=== PATIENT | female | born 1970 | race American Indian/Alaskan Native ===

== ENCOUNTER 2019-12-27 16:24 | Emergency (ER) | payer MEDICAID ==
[2019-12-27] MEDS ORDERED: HYDROcodone/ACETAMINOPHEN 5-325 MG TAB PO ONE (19:59)
--- NOTE | 2019-12-27 20:42 | Emergency Department Report ---
ED Lower Extremity HPI - General Chief Complaint: Extremity Problem,Nontraumatic Stated Complaint: RIGHT LEG PAIN, HIP PAIN, Time Seen by Provider: 12/27/19 19:58 Source: patient Mode of arrival: Ambulatory Limitations: No Limitations - History of Present Illness Initial Comments: Ms. Kelly is a 49-year-old -[place] female who presents for right hip pain x2 weeks. States she slipped and fell at home and has been having right hip aching since. Pain is described at 5/10 aching. Pain is exacerbated by prolonged walking ,standing, bending, and twisting. Pain is relieved by offloading and rest. Patient has history of chronic back pain she usually takes NSAIDs for same. She states she is out of NSAIDs at this time and cannot see [facility] doctor until next week. pt is noted ambulatory with steady gait. MD Complaint: hip injury Onset/Timin -: week(s) Injury: Pelvis: Right Type of Injury: blunt Place: home Severity: moderate Severity scale (0 -10): 4 Improves With: NSAID, rest Worsens With: weight bearing, movement, palpation Context: fall Associated Symptoms: ambulatory. denies: numbness, tingling - Related Data Previous Rx's Medication Instructions Recorded Last Taken Type Acetaminophen/Codeine [Tylenol 1 tab PO Q6H PRN #12 tab 12/27/19 Unknown Rx /Codeine # 3 tab] Menthol/Camphor [[place] 1 applicatio TP QID PRN #1 tube 12/27/19 Unknown Rx Ointment] Naproxen 500 mg PO BID PRN #30 tablet 12/27/19 Unknown Rx Allergies Allergy/AdvReac Type Severity Reaction Status Date / Time No Known Allergies Allergy Unverified 12/27/19 16:29 ED Review of Systems ROS: Stated complaint: RIGHT LEG PAIN, HIP PAIN, Other details as noted in HPI Constitutional: denies: chills, fever Eyes: denies: eye pain, eye discharge, vision change ENT: denies: ear pain, throat pain Respiratory: no symptoms reported. denies: shortness of breath, wheezing Cardiovascular: denies: chest pain, palpitations Endocrine: no symptoms reported Gastrointestinal: denies: abdominal pain, nausea, vomiting, diarrhea Genitourinary: denies: urgency, dysuria, discharge Musculoskeletal: arthralgia (low back , right hip ), myalgia. denies: back pain, joint swelling Skin: denies: rash, lesions Neurological: denies: headache, weakness, paresthesias Psychiatric: denies: anxiety, depression Hematological/Lymphatic: denies: easy bleeding, easy bruising ED Past Medical Hx - Past Medical History Previous Medical History?: Yes Hx Arthritis: Yes Additional medical history: Hiatal hernia - Medications Home Medications: Home Medications Medication Instructions Recorded Confirmed Last Taken Type Acetaminophen/Codeine [Tylenol 1 tab PO Q6H PRN #12 tab 12/27/19 Unknown Rx /Codeine # 3 tab] Menthol/Camphor [[place] 1 applicatio TP QID PRN #1 tube 12/27/19 Unknown Rx Ointment] Naproxen 500 mg PO BID PRN #30 tablet 12/27/19 Unknown Rx ED Physical Exam - General Limitations: No Limitations General appearance: alert, in no apparent distress - Head Head exam: Present: atraumatic, normocephalic - Eye Eye exam: Present: normal appearance - ENT ENT exam: Present: normal exam - Neck Neck exam: Present: normal inspection - Respiratory Respiratory exam: Present: normal lung sounds bilaterally. Absent: respiratory distress, wheezes - Cardiovascular Cardiovascular Exam: Present: regular rate, normal rhythm, normal heart sounds. Absent: systolic murmur, diastolic murmur, rubs, gallop - GI/Abdominal GI/Abdominal exam: Present: soft, normal bowel sounds. Absent: distended, tenderness - Rectal Rectal exam: Present: deferred - Extremities Exam Extremities exam: Present: normal inspection, full ROM, tenderness (right lateral hip tenderness to deep palpation), normal capillary refill. Absent: pedal edema, joint swelling, calf tenderness - Expanded Lower Extremity Exam Right Hip exam: Present: full ROM, tenderness (right lateral billie tenderness to deep palpation, no swelling no ecchymosis, no crepitus, rom intact and unrestricted.) Upper Leg exam: Present: normal inspection, full ROM. Absent: tenderness Knee exam: Present: full ROM. Absent: tenderness, swelling Lower Leg exam: Present: normal inspection, full ROM. Absent: tenderness, swelling Ankle exam: Present: normal inspection, full ROM. Absent: tenderness Foot/Toe exam: Present: normal inspection, full ROM. Absent: tenderness, swelling Neuro vascular tendon exam: Absent: pulse deficit, motor deficit, sensory deficit, tendon deficit Gait: Positive: observed and normal - Back Exam Back exam: Present: normal inspection, full ROM. Absent: tenderness, CVA tenderness (R), CVA tenderness (L), vertebral tenderness - Neurological Exam Neurological exam: Present: alert, oriented X3, CN II-XII intact, normal gait - Psychiatric Psychiatric exam: Present: normal affect, normal mood - Skin Skin exam: Present: warm, dry, intact, normal color. Absent: rash ED Course Vital Signs 12/27/19 12/27/19 18:21 20:43 Temperature 98.7 F Pulse Rate 74 73 Respiratory 16 16 Rate Blood Pressure 108/73 107/67 [Right] O2 Sat by Pulse 100 100 Oximetry ED Lower Extremity MDM - Radiology Data Radiology results: report reviewed Findings [facility] [address] [place] [address] XRay Report Signed Patient: OPHELIA KELLY MR #: [id number] : 1970 Acct:[id number] Age/Sex: 49 / F ADM Date: 12/27/19 Loc: ED Attending Dr: Ordering Physician: JESSI AVILA NP Date of Service: 12/27/19 Procedure(s): XR hip 2-3V RT Accession Number(s): [id number] cc: JESSI AVILA NP Fluoro Time In Minutes: RIGHT HIP AND PELVIS 2 VIEWS INDICATION: hip pain. COMPARISON: No relevant prior imaging study available. FINDINGS: There is osteoarthrosis at the right hip with joint space narrowing and subchondral sclerosis. 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 No acute fracture, dislocation, or femoral head osteonecrosis is seen. IMPRESSION: 1. No acute findings. Signer Name: Kwabena Santos MD Signed: 12/27/2019 9:09 PM Workstation Name: [id number] Transcribed By: Dictated By: Kwabena Santos MD Electronically Authenticated By: Kwabena Santos MD Signed Date/Time: 12/27/192108 - Medical Decision Making xray :no fracture no soft tissue abnormality., chronic osteoarthritis mild necrosis, pt has follow scheduled wiht [facility] for eval for hip replacement and has [facility] pcp who has been managing pain. pain is improved at this time. pt will be dc'd to home in stable condition at this time. pt dc'd to home in stable condition ambulatory with steady gait. Critical care attestation.: If time is entered above; I have spent that time in minutes in the direct care of this critically ill patient, excluding procedure time. ED Disposition Clinical Impression: Repetitive strain injury of right hip Qualifiers: Encounter type: initial encounter Qualified Code(s): S76.011A - Strain of muscle, fascia and tendon of right hip, initial encounter Osteoarthritis Qualifiers: Osteoarthritis location: hip Osteoarthritis type: unspecified Laterality: right Qualified Code(s): M16.11 - Unilateral primary osteoarthritis, right hip Disposition: DC-01 TO HOME OR SELFCARE Is pt being admited?: No Does the pt Need Aspirin: No Condition: Stable Instructions: Osteoarthritis (ED), Arthralgia (ED) Additional Instructions: Follow up with your [facility] doctor for pain medications, and [facility] for Arthritis of hip. Prescriptions: Naproxen 500 mg PO BID PRN #30 tablet PRN Reason: pain Menthol/Camphor [[place] Ointment] 1 applicatio TP QID PRN #1 tube PRN Reason: Pain , Severe (7-10) Acetaminophen/Codeine [Tylenol /Codeine # 3 tab] 1 tab PO Q6H PRN #12 tab PRN Reason: pain Referrals: SHALOM NNIO MD [Staff Physician] - 3-5 Days PRIMARY CARE, [Primary Care Provider] - 3-5 Days Forms: Work/School Release Form(ED) Time of Disposition: 21:35
[2019-12-27 20:44] VITALS: BP 107/67
--- NOTE | 2019-12-27 21:13 | XRay Report ---
RIGHT HIP AND PELVIS 2 VIEWS INDICATION: hip pain. COMPARISON: No relevant prior imaging study available. FINDINGS: There is osteoarthrosis at the right hip with joint space narrowing and subchondral sclerosis. 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 No acute fracture, dislocation, or femoral head osteonecrosis is seen. IMPRESSION: 1. No acute findings. Signer Name: Kwabena Santos MD Signed: 12/27/2019 9:09 PM Workstation Name: [id number]
== END 2019-12-27 21:40 | disposition home or self-care (01) ==
LOC: ED 16:24
DX: S76.011A Strain of muscle, fascia and tendon of right hip, initial encounter (principal); M16.11 Unilateral primary osteoarthritis, right hip; M79.604 Pain in right leg; Z79.899 Other long term (current) drug therapy; W01.0XXA Fall on same level from slipping, tripping and stumbling without subsequent striking against object, initial encounter; Y93.89 Activity, other specified; Y92.009 Unspecified place in unspecified non-institutional (private) residence as the place of occurrence of the external cause; Y99.8 Other external cause status

== ENCOUNTER 2020-01-05 09:32 | Outpatient (CLI) | payer MEDICAID | END 2020-01-05 09:33 | disposition home or self-care (01) | LOC: LAB 09:32 | PROVIDERS: ATTEND Psychiatry & Neurology Psychiatry | DX: F31.9 Bipolar disorder, unspecified (principal) | CPT/HCPCS: 36415; 80164 ==